=== PATIENT | female | born 1970 | race Caucasian/White ===

== ENCOUNTER 2016-06-20 12:17 | Emergency (ER) | payer OTHER ==
[~2016-06-20] VITALS: Ht 162.6 cm; Wt 68.0 kg
[2016-06-20 12:20] VITALS: BP 178/105
[2016-06-20] MEDS ORDERED: DIPHTH,PERTUSS(ACELL),TET TOX 0.5 ML DISP.SYRIN. VAX IM ONE (12:45)
[2016-06-20] MEDS ORDERED: TETRACAINE 0.5% OPHTH SOLUTION 4ML BOTTLE. OS ONE (12:45)
[2016-06-20] MEDS ORDERED: FLUORESCEIN OPHTH TEST STRIP. OS ONE (12:45)
[2016-06-20] MEDS ORDERED: EYE-STREAM OPHTH SOLUTION 120 ML BOTTLE. OS ONE (12:45)
--- NOTE | 2016-06-20 13:22 | PHYS DOC ---
Past Medical History Past Medical History: No Pertinent History Past Surgical History: Other Additional Past Surgical Histo: VAGINAL/BLADDER MESH Alcohol Use: Occasionally Drug Use: None Adult General Chief Complaint Chief Complaint: EYE PROBLEMS [facility] HPI Patient is a 45 year old female presents emergency department stating that she was at work when she was trying to put a box that he stepped on a shelf. She states that something fell off the shelf and fell into her left eye. She states that she attempted to sweep the area away although she felt as though went into her eye. She is stating she is having pain in the left upper inner eyelid as well as the left outer part of the eyelid. She states that they flushed her eye for approximately 15 minutes with no relief. Patient is unsure when her last tetanus immunization occurred. Review of Systems Review of Systems Constitutional: Denies fever or chills [] Eyes: Denies change in visual acuity, redness, C/o something in the left eye HENT: Denies nasal congestion or sore throat [] Respiratory: Denies cough or shortness of breath [] Cardiovascular: No additional information not addressed in HPI [] GI: Denies abdominal pain, nausea, vomiting, bloody stools or diarrhea [] : Denies dysuria or hematuria [] Musculoskeletal: Denies back pain or joint pain [] Integument: Denies rash or skin lesions [] Neurologic: Denies headache, focal weakness or sensory changes [] Current Medications Current Medications Current Medications Medications (Trade) Dose Ordered Sig/Josephine Start Time Stop Time Status Last Admin Dose Admin Diphtheria/ Tetanus/Acell Pertussis (Boostrix) 0.5 ml ONCE ONCE 06/20/16 12:45 06/20/16 12:46 DC 06/20/16 12:48 0.5 ML Eye Irrigation Solution (Eye-Stream) 120 ml 1X ONCE 06/20/16 12:45 06/20/16 12:46 DC 06/20/16 12:47 120 ML Fluorescein Sodium (Ful-Angela) 1 strip 1X ONCE 06/20/16 12:45 06/20/16 12:46 DC 06/20/16 12:47 1 STRIP Tetracaine HCl (Tetracaine) 1 drop 1X ONCE 06/20/16 12:45 06/20/16 12:46 DC 06/20/16 12:47 1 DROP Allergies Allergies Allergies Coded Allergies Type Severity Reaction Last Updated Verified No Known Drug Allergies 06/20/16 No Physical Exam Physical Exam Constitutional: Well developed, well nourished, no acute distress, non-toxic appearance. [] HENT: Normocephalic, atraumatic, bilateral external ears normal, oropharynx moist, no oral exudates, nose normal. [] Eyes: PERRLA, EOMI, conjunctiva normal, no discharge. [] Neck: Normal range of motion, no tenderness, supple, no stridor. [] Cardiovascular:Heart rate regular rhythm, no murmur [] Lungs & Thorax: Bilateral breath sounds clear to auscultation [] Skin: Warm, dry, no erythema, no rash. [] Back: No tenderness Extremities: No tenderness, no cyanosis, no clubbing, ROM intact, no edema. [] Neurologic: Alert and oriented X 3, normal motor function, normal sensory function, no focal deficits noted. [] Psychologic: Affect normal, judgement normal, mood normal. [] Current Patient Data Vital Signs Vital Signs Date Time Temp Pulse Resp B/P Pulse Ox O2 Delivery O2 Flow Rate FiO2 06/20/16 12:20 98.8 82 18 178/105 98 Room Air 98.8 EKG EKG [] Radiology/Procedures Radiology/Procedures [] Course & Med Decision Making Course & Med Decision Making Pertinent Labs and Imaging studies reviewed. (See chart for details) Tetracaine was placed into the left eye. No foreign body noted in the lower eyelid upper eyelid was inverted with no foreign body noted. No fluorescein uptake was noted. She continues to state that she has pain in the upper eye lid area towards the medial part of the eye as well as to the lateral part of the eye. Patient's eye was irrigated. Patient states that the inner part of the eye feels much better but she still has discomfort on the outer part of the eye. With Dr. Peterson in regards to further recommendations. Patient's eye will be irrigated again. If she continues to have pain and he recommends she go to the secretary bookkeeper. 1340 Eye was irrigated patient states she feels as though there is something in the out corner of the eye. She states she is having sharp pain. Call was placed to secretary bookkeeper. 1347 Spoke with Papa he states if the patient would like them to take a look at the eye send her over Patient will be discharge from here to go directly to the secretary bookkeeper to have the eye further examined. Papa is aware that we will be placing 2 more drops of tetracaine into the left eye. [] Dragon Disclaimer Dragon Disclaimer This electronic medical record was generated, in whole or in part, using a voice recognition dictation system. Departure Departure Impression: Primary Impression: Left eye pain Disposition: HOME, SELF-CARE Condition: STABLE Referrals: [facility] (PCP) Edinson HARP MD Patient Instructions: Eye - Foreign Body, [id number], Eye Injury-Brief Additional Instructions: Encourage adequate to Dr. Harp office for further evaluation of your eye. Address is listed below. Your eye was irrigated with NS with no relief of pain Your eye has been examined for corneal abrasion which was negative. Medication such as Tylenol or ibuprofen for pain and discomfort. CRISTOFER ALTMAN APRN Jun 20, 2016 13:22
== END 2016-06-20 13:58 | disposition home or self-care (01) ==
LOC: ER 12:17
DX: H57.12 Ocular pain, left eye (principal)
CPT/HCPCS: 90471; 90715; 99283-25